=== PATIENT | male | born 1985 | race Caucasian/White ===

== ENCOUNTER 2018-09-08 03:38 | Inpatient (IN) | payer BC ==
[2018-09-08] MEDS ORDERED: Sodium Chloride 0.9% 1,000 ML IV ONE ×2 (03:51→05:53)
[2018-09-08] MEDS ORDERED: Belladonna-Phenobarbital PO STA (03:51)
[2018-09-08] MEDS ORDERED: Aluminum Hydroxide/Magnesium Hydroxide Susp (30 mL) PO STA (03:51)
[2018-09-08] MEDS ORDERED: Alum-Mag Hydrox-Simethicone Susp (30 mL) ONE (03:59)
[2018-09-08 04:22] LABS: BASO # 0.1 K/uL (0.0-0.2); EOS % 0.1 % (0.0-4.0); LYMPH # 0.3 K/uL (1.0-4.3); LYMPH % 2.4 % (20.0-40.0); MEAN CELL VOLUME 103.3 fL (80.0-94.0); MEAN CORPUSCULAR HEMOGLOBIN 34.1 pg (27.0-31.0); MEAN PLATELET VOLUME 8.9 fL (7.2-11.7); MONO % 8.1 % (0.0-10.0); NEUT # 11.1 K/uL (1.8-7.0); NEUT % 88.4 % (50.0-75.0); PLATELET COUNT 174 K/uL (130-400); RED CELL DISTRIBUTION WIDTH 12.6 % (11.5-14.5); WHITE BLOOD COUNT 12.6 K/uL (4.8-10.8)
[2018-09-08 04:32] LABS: ALBUMIN 4.2 g/dL (3.5-5.0); ALT/SGPT 89 U/L (21-72); AST/SGOT 164 U/L (17-59); BLOOD UREA NITROGEN 8 mg/dL (9-20); GFR NON-AFRICAN AMERICAN > 60
[2018-09-08] MEDS ORDERED: Iodixanol 320 mg/ml 150 ml Bottle IV ONE (04:50)
--- NOTE | 2018-09-08 05:07 | C.PDOC ---
History Of Present Illness 32 year old male presents to the ED c/o epigastric abdominal pain associated with multiple episodes of vomiting and decreased PO intake since yesterday. Patient has questionable history of alcohol abuse. Patient denies fever, chills, diarrhea, back pain, dysuria, hematuria, recent travel, sick contacts. Time Seen by Provider: 09/08/18 03:51 Chief Complaint (Nursing): Abdominal Pain History Per: Patient History/Exam Limitations: no limitations Onset/Duration Of Symptoms: Days (1) Current Symptoms Are (Timing): Still Present Location Of Pain/Discomfort: Epigastric Radiation Of Pain To:: None Quality Of Discomfort: "Pain" Associated Symptoms: Nausea, Vomiting, Loss Of Appetite. denies: Diarrhea, Urinary Symptoms Recent travel outside of the [place]: No Additional History Per: Patient Past Medical History Reviewed: Historical Data, Nursing Documentation, Vital Signs Vital Signs: Last Vital Signs Temp 97.9 F 09/08/18 03:45 Pulse 88 09/08/18 03:45 Resp 20 09/08/18 03:45 BP 124/83 09/08/18 03:45 Pulse Ox 100 09/08/18 03:45 - Medical History PMH: Gastritis Surgical History: No Surg Hx Family History: States: Unknown Family Hx - Social History Hx Alcohol Use: Yes Hx Substance Use: No - Immunization History Hx Tetanus Toxoid Vaccination: No Hx Influenza Vaccination: No Hx Pneumococcal Vaccination: No Review Of Systems Constitutional: Negative for: Fever, Chills Cardiovascular: Negative for: Chest Pain Respiratory: Negative for: Cough, Shortness of Breath Gastrointestinal: Positive for: Nausea, Vomiting, Abdominal Pain. Negative for: Diarrhea Genitourinary: Negative for: Dysuria, Hematuria Musculoskeletal: Negative for: Back Pain Skin: Negative for: Rash Neurological: Negative for: Weakness, Numbness, Headache Physical Exam - Physical Exam Appears: Non-toxic, No Acute Distress Skin: Normal Color, Warm, Dry Head: Atraumatic, Normacephalic Eye(s): bilateral: Normal Inspection Oral Mucosa: Moist Neck: Normal ROM, Supple Chest: Symmetrical Cardiovascular: Rhythm Regular Respiratory: Normal Breath Sounds, No Rales, No Rhonchi, No Wheezing Gastrointestinal/Abdominal: Soft, Tenderness (epigastric), No Guarding, No Rebound Extremity: Normal ROM, No Tenderness, No Swelling Neurological/Psych: Oriented x3, Normal Speech, Normal Cognition Gait: Steady ED Course And Treatment - Laboratory Results Result Diagrams: 09/08/18 04:14 09/08/18 04:14 O2 Sat by Pulse Oximetry: 100 (ON RA) Pulse Ox Interpretation: Normal - CT Scan/US CT abd/pelvis Other Rad Studies (CT/US): Read By Radiologist, Radiology Report Reviewed CT/US Interpretation: CT SCAN OF THE ABDOMEN AND PELVIS WITH CONTRAST. CLINICAL HISTORY: Abdominal pain. TECHNIQUE: Multiple axial and coronal CT images were obtained through the abdomen and pelvis after administration of intravenous contrast material. COMMENTS: Moderately enlarged pancreas. Prominent surrounding free fluid and inflammatory fat stranding. Moderate amount of free fluid in the upper abdomen. Fluid-filled small bowels. The liver is of uniform attenuation without mass or defect. There is no intra or extrahepatic biliary ductal dilatation. The spleen is normal. The gallbladder is within normal limits. The pancreas is of normal contour and attenuation characteristics. There is no evidence of adrenal mass. Both kidneys demonstrate prompt and equal nephrograms. The kidneys are normal in size, shape and configuration. There is no evidence of renal or ureteral mass. No renal or ureteral calculi are identified. There is no hydroureter or hydronephrosis. No evidence for appendicitis. There is no bowel wall thickening. No evidence for small or large bowel obstruction. There is no evidence of intrinsic or extrinsic bladder mass. Images of the lung bases show no evidence of pleural or parenchymal mass. There are no pleural effusions. The bony structures are free of lytic or blastic lesions. IMPRESSION: Acute pancreatitis. No evidence of pancreatic necrosis or loculated fluid collection. Reactive gastroparesis. Reactive ileus. Thank you for your kind referral of this patient. . Electronically si gned on Sep 08, 2018 5:28:33 AM EST by: Gerson Nickerson M.D., Certified by ROXANNE, MSK, Neuroradiology Medical Decision Making Medical Decision Making: Plan: * Labs * CT abd/pelvis * 1 tab PO * Maalox 30 ml PO * Morphine 2 mg IV * Pepcid 20 mg IVP * IV fluids * Zofran 8 mg IVP Patient continues to complain about pain and nausea. Patient will be admitted f or acute pancreatitis to the medical floor under Dr. Bryant Castillo. Disposition - Disposition Disposition: HOSPITALIZED Disposition Time: 05:30 Condition: FAIR - Clinical Impression Clinical Impression: Acute pancreatitis, Abdominal pain - Scribe Statement The provider has reviewed the documentation as recorded by the Scribe Marquez Rojas All medical record entries made by the Scribe were at my direction and personally dictated by me. I have reviewed the chart and agree that the record accurately reflects my personal performance of the history, physical exam, medical decision making, and the department course for this patient. I have also personally directed, reviewed, and agree with the discharge instructions and disposition.
[2018-09-08 05:22] LABS: LIPASE 5586 U/L (23-300)
[2018-09-08] MEDS ORDERED: Morphine 4 MG/ML VIAL IV STA (05:49)
[2018-09-08 06:50] VITALS: RESP 20
[2018-09-08 08:42] LABS: LYMPHOCYTE 4 % (20-40); MONOCYTE 8 % (0-10); NEUTROPHIL 88 % (50-75); PLATELET ESTIMATE NORMAL (NORMAL); TOTAL CELLS COUNTED 100
--- NOTE | 2018-09-08 09:44 | CT ---
Date of service: 09/08/2018 PROCEDURE: CT Abdomen and Pelvis with contrast HISTORY: diffuse abdominal pain (mostly upper quad.) COMPARISON: None. TECHNIQUE: Contrast dose: Radiation dose: Total exam DLP = 325.27 mGy-cm. This CT exam was performed using one or more of the following dose reduction techniques: Automated exposure control, adjustment of the mA and/or kV according to patient size, and/or use of iterative reconstruction technique. FINDINGS: LOWER THORAX: Unremarkable. LIVER: Unremarkable. No gross lesion or ductal dilatation. GALLBLADDER AND BILE DUCTS: Unremarkable. PANCREAS: Enlarged pancreas with extensive peripancreatic inflammatory stranding and fluid consistent with acute pancreatitis. No evidence of pancreatic necrosis. SPLEEN: Unremarkable. ADRENALS: Unremarkable. No mass. KIDNEYS AND URETERS: Unremarkable. No hydronephrosis. No solid mass. VASCULATURE: Unremarkable. No aortic aneurysm. No aortic atherosclerotic calcification or mural plaque present. BOWEL: Unremarkable. No obstruction. No gross mural thickening. APPENDIX: Normal appendix. PERITONEUM: Unremarkable. No free fluid. No free air. LYMPH NODES: Unremarkable. No enlarged lymph nodes. BLADDER: Unremarkable. REPRODUCTIVE: Unremarkable. BONES: No acute fracture. OTHER FINDINGS: None. IMPRESSION: Enlarged pancreas with extensive peripancreatic inflammatory stranding and fluid consistent with acute pancreatitis. No evidence of pancreatic necrosis.
[2018-09-08] MEDS: Sodium Chloride 0.9% 1,000 ML IV SCH ×2 (09:55→18:01)
[2018-09-08 14:30] LABS: SQUAMOUS EPITHIAL < 1 /hpf (0-5); URINE BACTERIA RARE (<OCC); URINE BILIRUBIN NEGATIVE (NEGATIVE); URINE BLOOD NEGATIVE (NEGATIVE); URINE CLARITY Clear (Clear); URINE COLOR Yellow (YELLOW); URINE GLUCOSE (UA) NORMAL (Normal); URINE LEUKOCYTE ESTERASE NEG Leu/uL (Negative); URINE PROTEIN NEGATIVE (NEGATIVE); URINE UROBILINOGEN NORMAL mg/dL (0.2-1.0)
--- NOTE | 2018-09-08 18:08 | CP.PCM.PN ---
Subjective - Date & Time of Evaluation Date of Evaluation: 09/08/18 Time of Evaluation: 08:00 - Subjective Subjective: clinically same Objective - Vital Signs/Intake and Output Vital Signs (last 24 hours): Temp Pulse Resp BP Pulse Ox 98.9 F 73 20 116/76 97 09/08/18 07:33 09/08/18 07:33 09/08/18 07:33 09/08/18 07:33 09/08/18 07:33 - Medications Medications: Current Medications Sodium Chloride (Sodium Chloride 0.9%) 1,000 mls @ 100 mls/hr IV .Q10H [facility] Last Admin: 09/08/18 18:01 Dose: Not Given Morphine Sulfate (Morphine) 2 mg IVP Q4 PRN PRN Reason: Pain, severe (8-10) Morphine Sulfate (Morphine) 1 mg IVP Q4 PRN PRN Reason: Pain, moderate (4-7) Last Admin: 09/08/18 17:07 Dose: 1 mg Ondansetron HCl (Zofran Inj) 4 mg IVP Q8H PRN PRN Reason: Nausea/Vomiting Pantoprazole Sodium (Protonix Inj) 40 mg IVP DAILY [facility] Last Admin: 09/08/18 09:55 Dose: 40 mg - Labs Labs: 09/08/18 04:14 09/08/18 04:14
--- NOTE | 2018-09-08 18:10 | CP.PCM.HP ---
Past Patient History - Past Medical History & Family History Past Medical History?: Yes - Past Social History Smoking Status: Current Some Days Smoker - CARDIAC Hx Cardiac Disorders: No - PULMONARY Hx Respiratory Disorders: No - NEUROLOGICAL Hx Neurological Disorder: No - HEENT Hx HEENT Problems: No - RENAL Hx Chronic Kidney Disease: No - ENDOCRINE/METABOLIC Hx Endocrine Disorders: No - HEMATOLOGICAL/ONCOLOGICAL Hx Blood Disorders: No - INTEGUMENTARY Hx Dermatological Problems: No - MUSCULOSKELETAL/RHEUMATOLOGICAL Hx Musculoskeletal Disorders: No Hx Falls: No - GASTROINTESTINAL Hx Gastrointestinal Disorders: Yes Hx Gastritis: Yes - GENITOURINARY/GYNECOLOGICAL Hx Genitourinary Disorders: No - PSYCHIATRIC Hx Psychophysiologic Disorder: No Hx Substance Use: Yes (occasional marijuiana) - SURGICAL HISTORY Hx Surgeries: No - ANESTHESIA Hx Anesthesia: No Meds Allergies/Adverse Reactions: Allergies Allergy/AdvReac Type Severity Reaction Status Date / Time No Known Allergies Allergy Unverified 09/08/18 03:49 Physical Exam - Constitutional Appears: Well - Head Exam Head Exam: ATRAUMATIC, NORMAL INSPECTION, NORMOCEPHALIC - Eye Exam Eye Exam: EOMI, Normal appearance, PERRL Pupil Exam: NORMAL ACCOMODATION, PERRL - ENT Exam ENT Exam: Mucous Membranes Moist, Normal Exam - Neck Exam Neck exam: Positive for: Normal Inspection - Respiratory Exam Respiratory Exam: Clear to Auscultation Bilateral, NORMAL BREATHING PATTERN - Cardiovascular Exam Cardiovascular Exam: REGULAR RHYTHM, +S1, +S2 - GI/Abdominal Exam GI & Abdominal Exam: Diminished Bowel Sounds, Soft - Rectal Exam Rectal Exam: Deferred Results - Vital Signs Recent Vital Signs: Last Vital Signs Temp 98.9 F 09/08/18 07:33 Pulse 73 09/08/18 07:33 Resp 20 09/08/18 07:33 BP 116/76 09/08/18 07:33 Pulse Ox 97 09/08/18 07:33 - Labs Result Diagrams: 09/08/18 04:14 09/08/18 04:14 Labs: Laboratory Results - last 24 hr 09/08/18 09/08/18 09/08/18 04:14 04:14 14:21 WBC 12.6 H RBC 4.10 L Hgb 14.0 Hct 42.4 MCV 103.3 H MCH 34.1 H MCHC 33.0 RDW 12.6 Plt Count 174 MPV 8.9 Neut % (Auto) 88.4 H Lymph % (Auto) 2.4 L [place] % (Auto) 8.1 Eos % (Auto) 0.1 Baso % (Auto) 1.0 Neut # (Auto) 11.1 H Lymph # (Auto) 0.3 L [place] # (Auto) 1.0 H Eos # (Auto) 0.0 Baso # (Auto) 0.1 Neutrophils % (Manual) 88 H Lymphocytes % (Manual) 4 L Monocytes % (Manual) 8 Platelet Estimate Normal Sodium 138 Potassium 3.9 Chloride 98 Carbon Dioxide 27 Anion Gap 16 BUN 8 L Creatinine 0.9 Est GFR ( Amer) > 60 Est GFR (Non-Af Amer) > 60 Random Glucose 138 H Calcium 9.0 Total Bilirubin 2.4 H AST 164 H ALT 89 H Alkaline Phosphatase 248 H Troponin I < 0.0120 Total Protein 8.2 Albumin 4.2 Globulin 4.1 H Albumin/Globulin Ratio 1.0 Lipase 5586 H Urine Color Yellow Urine Clarity Clear Urine pH 6.0 Ur Specific [place] 1.010 Urine Protein Negative Urine Glucose (UA) Normal Urine Ketones 1+ H Urine Blood Negative Urine Nitrate Negative Urine Bilirubin Negative Urine Urobilinogen Normal Ur Leukocyte Esterase Neg Urine RBC (Auto) < 1 Ur Squamous Epith Cells < 1 Urine Bacteria Rare
[2018-09-09] MEDS: Sodium Chloride 0.9% 1,000 ML IV SCH ×3 (06:03→18:50)
[2018-09-09 07:08] LABS: BASO % 0.2 % (0.0-2.0); EOS % 0.2 % (0.0-4.0); HEMOGLOBIN 12.3 g/dL (12.0-18.0); LYMPH % 8.4 % (20.0-40.0); MEAN CELL VOLUME 102.1 fL (80.0-94.0); MEAN CORPUSCULAR HEMOGLOBIN 34.1 pg (27.0-31.0); MEAN CORPUSCULAR HGB CONC 33.4 g/dL (33.0-37.0); MEAN PLATELET VOLUME 9.7 fL (7.2-11.7); MONO # 0.9 K/uL (0.0-0.8); MONO % 7.6 % (0.0-10.0); NEUT # 10.1 K/uL (1.8-7.0); NEUT % 83.6 % (50.0-75.0); PLATELET COUNT 116 K/uL (130-400); RED CELL DISTRIBUTION WIDTH 12.8 % (11.5-14.5); WHITE BLOOD COUNT 12.1 K/uL (4.8-10.8)
[2018-09-09 07:31] LABS: ALT/SGPT 54 U/L (21-72); AMYLASE 129 U/L (30-110); AST/SGOT 86 U/L (17-59); BLOOD UREA NITROGEN 3 mg/dL (9-20); GFR NON-AFRICAN AMERICAN > 60; LIPASE 915 U/L (23-300)
--- NOTE | 2018-09-09 10:04 | CP.PCM.CON ---
History of Present Illness - History of Present Illness History of Present Illness: Asked by Dr. Castillo for a GI consultation on this patient. 32 year old male without significant medical history who presents to hospital with complaint of progressive abdominal pain which started 4 days ago following heavy ETOH use. P ain was located in epigastric region, 8/10 intensity which radiated to back and was associated with multiple episodes of nausea, non-bloody emesis. He reports dealing with a in the family recently and admits to heavy ETOH use (mixed liquor and beer) for 3 days prior to symptom onset. He also reports a 10 pound weight loss over the past one year but denies rectal bleeding or change in bowel habits. He had an EGD [address] Jiang and has been maintained on intermittent Dexilant therapy since. Social history: smokes marijuana, +ETOH abuse Family history: father (lung cancer) Review of Systems - Review of Systems Review of Systems: - All other comprehensive 12 point review of systems performed, negative - Constitutional Constitutional: Weight Loss - Cardiovascular Cardiovascular: absent: Acrocyanosis, Chest Pain, Chest Pain at Rest, Chest Pain with Activity, Claudication, Diaphoresis, Dyspnea, Dyspnea on Exertion, Edema, I rregular Heart Rhythm, Pain Radiating to Arm/Neck/Jaw, Leg Edema, Leg Ulcers, Lightheadedness, Orthopnea, Palpitations, Paroxysmal Nocturnal Dyspnea, Pedal Edema, Radiating Pain, Rapid Heart Rate, Slow Heart Rate, Syncope, Other - Respiratory Respiratory: absent: Cough, Dyspnea, Hemoptysis, Dyspnea on Exertion, Wheezing, Snoring, Stridor, Pain on Inspiration, Chest Congestion, Excessive Mucous Production, Change in Mucous Color, Pain with Coughing, Other - Gastrointestinal Gastrointestinal: Abdominal Pain - Musculoskeletal Musculoskeletal: absent: Abnormal Gait, Arthralgias, Atrophy, Back Pain, Deformity, Joint Swelling, Limited Range of Motion, Loss of Height, Muscle Cramps, Muscle Weakness, Myalgias, Neck Pain, Numbness, Radiating Pain into Limb, Stiffness, Tingling, Other - Neurological Neurological: absent: Abnormal Gait, Abnormal Hearing, Abnormal Movements, Abnormal Speech, Behavioral Changes, Burning Sensations, Confusion, Convulsions, Disequilibrium, Dizziness, Numbness, Focal Weakness, Frequent Falls, Headaches, Lack of Coordination, Loss of Vision, Memory Loss, Paresthesias, Radicular Pain, Restless Legs, Sensory Deficit, Syncope, Tingling, Tremor, Vertigo, Weakness, Other Visual Disturbances, Other Past Patient History - Past Medical History & Family History Past Medical History?: Yes - Past Social History Smoking Status: Current Some Days Smoker - CARDIAC Hx Cardiac Disorders: No - PULMONARY Hx Respiratory Disorders: No - NEUROLOGICAL Hx Neurological Disorder: No - HEENT Hx HEENT Problems: No - RENAL Hx Chronic Kidney Disease: No - ENDOCRINE/METABOLIC Hx Endocrine Disorders: No - HEMATOLOGICAL/ONCOLOGICAL Hx Blood Disorders: No - INTEGUMENTARY Hx Dermatological Problems: No - MUSCULOSKELETAL/RHEUMATOLOGICAL Hx Musculoskeletal Disorders: No Hx Falls: No - GASTROINTESTINAL Hx Gastritis: Yes - GENITOURINARY/GYNECOLOGICAL Hx Genitourinary Disorders: No - PSYCHIATRIC Hx Substance Use: No - SURGICAL HISTORY Hx Surgeries: No - ANESTHESIA Hx Anesthesia: No Meds Allergies/Adverse Reactions: Allergies Allergy/AdvReac Type Severity Reaction Status Date / Time No Known Allergies Allergy Unverified 09/08/18 03:49 - Medications Medications: Current Medications Sodium Chloride (Sodium Chloride 0.9%) 1,000 mls @ 100 mls/hr IV .Q10H [facility] Last Admin: 09/09/18 06:03 Dose: 100 mls/hr Morphine Sulfate (Morphine) 1 mg IVP Q4 PRN PRN Reason: Pain, moderate (4-7) Last Admin: 09/08/18 17:07 Dose: 1 mg Ondansetron HCl (Zofran Inj) 4 mg IVP Q8H PRN PRN Reason: Nausea/Vomiting Pantoprazole Sodium (Protonix Inj) 40 mg IVP DAILY [facility] Last Admin: 09/09/18 09:04 Dose: 40 mg Zolpidem Tartrate (Ambien) 5 mg PO HS PRN PRN Reason: Insomnia Last Admin: 09/08/18 21:43 Dose: 5 mg Physical Exam - Constitutional Appears: Non-toxic, No Acute Distress - Head Exam Head Exam: NORMAL INSPECTION - Eye Exam Eye Exam: EOMI, Normal appearance, PERRL - ENT Exam ENT Exam: Mucous Membranes Moist - Respiratory Exam Respiratory Exam: Clear to Auscultation Bilateral - Cardiovascular Exam Cardiovascular Exam: REGULAR RHYTHM, +S1, +S2 - GI/Abdominal Exam GI & Abdominal Exam: Normal Bowel Sounds, Soft, Tenderness Additional comments: mild epigastric tenderness to palpation, no rebound/guarding no palpable hepato/splenomegaly - Extremities Exam Extremities exam: Positive for: normal inspection - Neurological Exam Neurological exam: Alert, CN II-XII Intact, Oriented x3, Reflexes Normal - Psychiatric Exam Psychiatric exam: Normal Affect, Normal Mood - Skin Skin Exam: Dry, Intact, Normal Color, Warm Additional comments: multiple tattoos on anterior chest, upper extremities Results - Vital Signs Recent Vital Signs: Last Vital Signs Temp 99.0 F 09/09/18 07:36 Pulse 74 09/09/18 07:36 Resp 20 09/09/18 07:36 BP 120/76 09/09/18 07:36 Pulse Ox 97 09/09/18 07:36 - Labs Result Diagrams: 09/09/18 06:59 09/09/18 06:59 Labs: Laboratory Results - last 24 hr 09/08/18 09/09/18 09/09/18 14:21 06:59 06:59 WBC 12.1 H RBC 3.60 L Hgb 12.3 Hct 36.7 MCV 102.1 H MCH 34.1 H MCHC 33.4 RDW 12.8 Plt Count 116 L D MPV 9.7 Neut % (Auto) 83.6 H Lymph % (Auto) 8.4 L [place] % (Auto) 7.6 Eos % (Auto) 0.2 Baso % (Auto) 0.2 Neut # (Auto) 10.1 H Lymph # (Auto) 1.0 [place] # (Auto) 0.9 H Eos # (Auto) 0.0 Baso # (Auto) 0.0 Sodium 134 Potassium 3.4 L Chloride 101 Carbon Dioxide 25 Anion Gap 12 BUN 3 L Creatinine 0.7 L Est GFR ( Amer) > 60 Est GFR (Non-Af Amer) > 60 Random Glucose 84 D Calcium 8.0 L Phosphorus 2.1 L Magnesium 1.6 Total Bilirubin 2.7 H AST 86 H D ALT 54 Alkaline Phosphatase 167 H D Total Protein 6.1 L Albumin 3.0 L D Globulin 3.1 Albumin/Globulin Ratio 1.0 Amylase 129 H Lipase 915 H Urine Color Yellow Urine Clarity Clear Urine pH 6.0 Ur Specific [place] 1.010 Urine Protein Negative Urine Glucose (UA) Normal Urine Ketones 1+ H Urine Blood Negative Urine Nitrate Negative Urine Bilirubin Negative Urine Urobilinogen Normal Ur Leukocyte Esterase Neg Urine RBC (Auto) < 1 Ur Squamous Epith Cells < 1 Urine Bacteria Rare Assessment & Plan - Assessment and Plan (Free Text) Assessment: Abdominal pain Acute pancreatitis secondary to ETOH CT imaging reviewed by me showing diffuse pancreatic edema with associated inflammatory stranding and madina-pancreatic fluid Plan: - Clear liquid diet as tolerated - Continue with IVF hydration, supportive care - Pain control - ETOH cessation counseling - Will continue to monitor patient clinical course
[2018-09-09 10:56] LABS: BANDS 11 % (0-2); EOSINOPHIL 1 % (0-4); LYMPHOCYTE 4 % (20-40); MONOCYTE 5 % (0-10); NEUTROPHIL 79 % (50-75); PLATELET ESTIMATE SLIGHTLY DECREASED (NORMAL); TOTAL CELLS COUNTED 100
[2018-09-09 10:57] LABS: ANISOCYTOSIS SLIGHT; LARGE PLATELETS PRESENT
[2018-09-09 10:58] LABS: GIANT PLATELETS PRESENT; TOXIC GRANULATION PRESENT
[2018-09-09] MEDS: Ciprofloxacin 400mg/200ml D5W 400 MG/200 ML BAG IVPB SCH ×2 (11:27→22:19)
[2018-09-09] MEDS: Potassium Chloride 20 mEq ER Tab PO SCH (12:57)
--- NOTE | 2018-09-09 21:06 | CP.PCM.PN ---
Subjective - Date & Time of Evaluation Date of Evaluation: 09/09/18 Time of Evaluation: 07:45 - Subjective Subjective: clinically same Objective - Vital Signs/Intake and Output Vital Signs (last 24 hours): Temp Pulse Resp BP Pulse Ox 99.1 F 89 20 113/66 98 09/09/18 15:00 09/09/18 15:00 09/09/18 15:00 09/09/18 15:00 09/09/18 15:00 Intake and Output: 09/09/18 09/10/18 18:59 06:59 Intake Total 1600 Output Total 500 Balance 1100 - Medications Medications: Current Medications Sodium Chloride (Sodium Chloride 0.9%) 1,000 mls @ 100 mls/hr IV .Q10H [facility] Last Admin: 09/09/18 13:59 Dose: Not Given Ciprofloxacin (Cipro 400mg/200ml Dsw) 400 mg in 200 mls @ 133 mls/hr IVPB Q12H [facility]; Protocol Last Admin: 09/09/18 11:27 Dose: 133 mls/hr Morphine Sulfate (Morphine) 1 mg IVP Q4 PRN PRN Reason: Pain, moderate (4-7) Last Admin: 09/08/18 17:07 Dose: 1 mg Ondansetron HCl (Zofran Inj) 4 mg IVP Q8H PRN PRN Reason: Nausea/Vomiting Pantoprazole Sodium (Protonix Inj) 40 mg IVP DAILY [facility] Last Admin: 09/09/18 09:04 Dose: 40 mg Potassium Chloride (K-Dur 20 Meq Er Tab) 40 meq PO BRK [facility] Last Admin: 09/09/18 12:57 Dose: 40 meq Zolpidem Tartrate (Ambien) 5 mg PO HS PRN PRN Reason: Insomnia Last Admin: 09/08/18 21:43 Dose: 5 mg - Labs Labs: 09/09/18 06:59 09/09/18 06:59
[2018-09-10] MEDS: Sodium Chloride 0.9% 1,000 ML IV SCH ×3 (01:00→10:04)
--- NOTE | 2018-09-10 06:45 | CP.PCM.PN ---
Subjective - Date & Time of Evaluation Date of Evaluation: 09/10/18 Time of Evaluation: 06:42 - Subjective Subjective: Patient seen and examined, resting in bed comfortably. No acute events overnight, his abdominal pain has significantly improved. He denies nausea, vomiting, fever/chills. Tolerating PO liquids without difficulty. Review of vitals from today are normal. 12 point review of systems performed, negative aside from mentioned above. Objective - Vital Signs/Intake and Output Vital Signs (last 24 hours): Temp Pulse Resp BP Pulse Ox 99.2 F 81 20 120/77 97 09/09/18 23:10 09/09/18 23:10 09/09/18 23:10 09/09/18 23:10 09/09/18 23:10 Intake and Output: 09/09/18 09/10/18 18:59 06:59 Intake Total 1600 920 Output Total 500 Balance 1100 920 - Medications Medications: Current Medications Sodium Chloride (Sodium Chloride 0.9%) 1,000 mls @ 100 mls/hr IV .Q10H [facility] Last Admin: 09/10/18 05:54 Dose: 100 mls/hr Ciprofloxacin (Cipro 400mg/200ml Dsw) 400 mg in 200 mls @ 133 mls/hr IVPB Q12H [facility]; Protocol Last Admin: 09/09/18 22:19 Dose: 133 mls/hr Morphine Sulfate (Morphine) 1 mg IVP Q4 PRN PRN Reason: Pain, moderate (4-7) Last Admin: 09/08/18 17:07 Dose: 1 mg Ondansetron HCl (Zofran Inj) 4 mg IVP Q8H PRN PRN Reason: Nausea/Vomiting Pantoprazole Sodium (Protonix Inj) 40 mg IVP DAILY [facility] Last Admin: 09/09/18 09:04 Dose: 40 mg Potassium Chloride (K-Dur 20 Meq Er Tab) 40 meq PO BRK [facility] Last Admin: 09/09/18 12:57 Dose: 40 meq Zolpidem Tartrate (Ambien) 5 mg PO HS PRN PRN Reason: Insomnia Last Admin: 09/08/18 21:43 Dose: 5 mg - Labs Labs: 09/09/18 06:59 09/09/18 06:59 - Constitutional Appears: Non-toxic, No Acute Distress - Head Exam Head Exam: NORMAL INSPECTION - Eye Exam Eye Exam: EOMI, Normal appearance - ENT Exam ENT Exam: Mucous Membranes Moist - Respiratory Exam Respiratory Exam: Clear to Ausculation Bilateral - Cardiovascular Exam Cardiovascular Exam: REGULAR RHYTHM, +S1, +S2 - GI/Abdominal Exam GI & Abdominal Exam: Soft, Normal Bowel Sounds Additional comments: non tender to palpation in four quadrants - Extremities Exam Extremities Exam: Normal Inspection - Skin Skin Exam: Dry, Intact, Normal Color, Warm Assessment and Plan - Assessment and Plan (Free Text) Assessment: Abdominal pain Acute ETOH induced pancreatitis Plan: - Will advance diet to low fat and observe clinical response - Continue with IVF hydration, supportive care - Anti-emetic therapy PRN - Patient will require additional GI follow up after hospital discharge, will continue to monitor patient clinical course
[2018-09-10 07:52] VITALS: O2SAT 98
[2018-09-10] MEDS: Potassium Chloride 20 mEq ER Tab PO SCH (08:36)
[2018-09-10] MEDS: Ciprofloxacin 400mg/200ml D5W 400 MG/200 ML BAG IVPB SCH (10:00)
[2018-09-10] MEDS ORDERED: Influenza Vaccine 60 MCG/0.5 ML SYR (3 yr & up) IM ONE (15:29)
[2018-09-10] MEDS ORDERED: Pneumococcal 23-Valent Vaccine IM ONE (15:30)
[2018-09-10 16:29] VITALS: BP 117/72; PULSE 74; TEMP 99.3
--- NOTE | 2018-09-11 09:37 | CARD ---
APPROVED REPORT Date of service: 09/08/2018 EKG Measurement Heart [id number] <Conclusion> Normal sinus rhythm Normal ECG
== END 2018-09-10 16:20 | disposition home or self-care (01) | DRG 440 ==
LOC: C.ER 03:38 → C.9E 05:49 → C.3T 05:56
PROVIDERS: ADMIT Internal Medicine Nephrology; ATTEND Internal Medicine Nephrology
DX: K85.20 Alcohol induced acute pancreatitis without necrosis or infection (principal); Z80.1 Family history of malignant neoplasm of trachea, bronchus and lung; Z72.89 Other problems related to lifestyle